=== PATIENT | female | born 1985 | race Caucasian/White ===

== ENCOUNTER 2023-01-07 00:21 | Emergency (ER) | payer BC, SELFPAY ==
[2023-01-07 00:26] VITALS: BP 138/101; PULSE 97; RESP 22; TEMP 36.8; O2SAT 99; BMI 28.3
[2023-01-07 00:32] VITALS: PULSE 97
--- NOTE | 2023-01-07 00:33 | ECG_ITS ---
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
--- NOTE | 2023-01-07 00:35 | ED.CHESTPAI1 ---
HPI - Chest Pain General Chief Complaint: Chest Pain Stated Complaint: CHEST PAIN Time Seen by Provider: 01/07/23 00:22 Source: patient Mode of arrival: walk-in Limitations: no limitations History of Present Illness HPI narrative: developed chest pain this morning - just left of center - and has been intermittent since it began. No recent injury or activity to account for the pain. The pain radiates into the left shoulder and left upper back. Associated with shortness of breath. Pain worsens when she takes a deep breath. She took nothing for the pain. PMHx includes recent diagnosis of cervical cancer for which she had a LEEP and is scheduled to see a specialist regarding any additional treatment. She just found out that she has high cholesterol and that her thyroid function is also being monitored . She does not have a local PCP - she was referred to a provider in [place] for her cervical cancer treatment. Related Data Home Medications Medication Instructions Recorded Confirmed bupropion HCl 150 mg tablet,12 hr mg PO 01/07/23 sustained-release Allergies Allergy/AdvReac Type Severity Reaction Status Date / Time No Known Drug Allergies Allergy Verified 01/07/23 00:35 Exam Narrative Exam Narrative: Nurses notes and vital signs reviewed and patient is not hypoxic. afebrile General: anxious and hyperventilating Skin: Warm, dry, no pallor noted. No rash. Head: Normocephalic, atraumatic. Neck: Supple, non-tender. Eye: Pupils are equal, round and EOMI. No scleral icterus. Ears, Nose, Mouth, and Throat: Oral mucosa is moist Cardiovascular: borderline tachycardia. Respiratory: No accessory muscle use or respiratory distress. Lungs are clear to auscultation, no wheezing, rales or rhonchi Chest Wall: no tenderness, crepitus or subcutaneous emphysema Back: No midline thoracic or lumbar vertebral tenderness. No CVA tenderness Musculoskeletal: normal ROM, no calf or popliteal tenderness, no lower extremity edema/swelling GI: Abdomen is soft, non-distended. Normal bowel sounds. No tenderness to palpation. No rebound, guarding, or rigidity noted. Neurological: A&O x4. No cranial nerve dysfunction observed. No truncal ataxia. Moves all extremities. Sensation intact. Psychiatric: Cooperative and interactive. Normal mood and affect. Constitutional Vital Signs - 24 hr 01/07/23 00:26 01/07/23 01:27 Temperature 98.3 F Pulse Rate [Monitor] 97 H 105 H Respiratory Rate 22 20 Blood Pressure [Left Arm] 138/101 H 133/84 H Pulse Oximetry 99 97 Oxygen Delivery Method Room Air Room Air Course Vital Signs Vital signs: Vital Signs Temperature 98.3 F 01/07/23 00:26 Pulse Rate 97 H 01/07/23 00:26 Respiratory Rate 22 01/07/23 00:26 Blood Pressure 138/101 H 01/07/23 00:26 Pulse Oximetry 99 01/07/23 00:26 Oxygen Delivery Method Room Air 01/07/23 00:26 Temperature 98.3 F 01/07/23 00:26 Pulse Rate 105 H 01/07/23 01:27 Respiratory Rate 20 01/07/23 01:27 Blood Pressure 133/84 H 01/07/23 01:27 Pulse Oximetry 97 01/07/23 01:27 Oxygen Delivery Method Room Air 01/07/23 01:27 MDM - Chest Pain MDM Narrative Medical decision making narrative: Patient was placed on environmental monitoring specialist and EKG obtained. Blood drawn and sent for evaluation. she was given IV Toradol for her pain and IV Ativan for her anxiety. chest CTA obtained. Lab Data Attestation: I reviewed the patient's lab results. Labs: Lab Results 01/07/23 Range/Units 00:40 WBC 10.3 (4.0-11.0) 10^3/uL RBC 4.69 (4.20-5.40) 10^6/uL Hgb 14.2 (12.0-16.0) g/dL Hct 44.0 (36.0-48.0) % MCV 93.8 (81.0-99.0) fL MCH 30.3 (26.7-34.0) pg MCHC 32.3 (29.9-35.2) g/dL RDW 13.7 (11.0-15.0) % Plt Count 251 (150-450) 10^3/uL MPV 9.6 (9.5-13.5) fL Neut % (Auto) 64.6 (43.0-75.0) % Lymph % (Auto) 21.1 (20.5-60.0) % Saline % (Auto) 11.2 (1.7-12.0) % Eos % (Auto) 2.4 (0.9-7.0) % Baso % (Auto) 0.4 (0.2-2.0) % Neut # (Auto) 6.6 H (1.4-6.5) 10^3/uL Lymph # (Auto) 2.2 (1.2-3.8) 10^3/uL Saline # (Auto) 1.2 H (0.3-0.8) 10^3/uL Eos # (Auto) 0.3 (0.0-0.7) 10^3/uL Baso # (Auto) 0.0 (0.0-0.1) 10^3/uL Abs Immat Gran (auto) 0.03 (0.00-0.03) 10^3/uL Imm/Tot Granulo (auto) 0.3 (0.0-0.5) % Sodium 137 (136-145) mmol/L Potassium 3.4 L (3.5-5.1) mmol/L Chloride 104 (98-107) mmol/L Carbon Dioxide 27.3 (21.0-32.0) mmol/L Anion Gap 9.1 BUN 15.0 (7.0-18.0) mg/dL Creatinine 1.04 H (0.55-1.02) mg/dL Est GFR ( Amer) >60 (>=60) Est GFR (Non-Af Amer) 59 L (>=60) BUN/Creatinine Ratio 14.4 Glucose 120 H (74-106) mg/dL Calcium 8.7 (8.5-10.1) mg/dL Troponin I High Sens 8.1 (4.0-51.3) pg/mL Free T4 0.74 L (0.76-1.46) ng/dL Free T3 2.83 (2.18-3.98) pg/mL Imaging Data CT scan - chest: Radiologist's impression: Patient Name: DEANDRA COHEN MRN: [id number] date: 1985 Sex: F Assigned Patient Location: ER Current Patient Location: ER Accession/Order Number: [id number] Exam Date: 01/07/2023 01:30 Report Date: 01/07/2023 01:32 At the request of: HO BERNARDO Procedure: CT angio chest EXAMINATION: CT angio chest HISTORY: chest pain, shortness of breath , left arm pain, back pain COMPARISON: No relevant comparison available. TECHNIQUE: Multi-planar CT images were created with IV contrast. Axial, Coronal, and Sagittal images. Dose reduction techniques were achieved by using automated exposure control and/or adjustment of mA and/or kV according to patient size and/or use of iterative reconstruction technique. 3-D reconstruction was performed on a separate workstation. FINDINGS: VASCULATURE: No pulmonary embolism or abnormal opacity. LUNGS: No visible pulmonary disease. PLEURA: No mass, effusion, or pneumothorax. MOHSEN: No mass or adenopathy. MEDIASTINUM: No mass or adenopathy. CARDIAC: No enlargement, pericardial effusion, or pericardial thickening. AORTA: No aneurysm or dissection. CHEST WALL: No mass or axillary adenopathy. BONES: No bone lesion or fracture. LIMITED ABDOMEN: No suspicious findings. Limited images of the upper abdomen. OTHER: Negative. IMPRESSION: 1. No pulmonary embolism. 2. No pulmonary infiltrates, pneumothorax, pleural effusion, or suspicious findings to account for patient's symptoms. Electronically authenticated by: KANU GANDHI Date: 01/07/2023 01:32 ECG Data Attestation: ?I have reviewed the pertinent ECG results. Interpretation: EKG interpretation: Emergency Department physician interpretation. Normal sinus rhythm at 97bpm. Normal axis, normal intervals and no ST segment elevation or depression. Normal ekg. Heart Score History: Moderatly Suspicious ECG: Normal Age: <45 years Risk Factors: 1 or 2 Risk Factors Troponin: <Normal Limit Total Heart Score Recommendations & Risks:: 2 Discharge Plan Discharge Chief Complaint: Chest Pain Clinical Impression: Chest pain Patient Disposition: Home, Self-Care Time of Disposition Decision: 01:36 Prescriptions / Home Meds: No Action bupropion HCl 150 mg tablet sustained-release 12 hr PO Instructions: Chest Pain (ED) Stand Alone Forms: Portal Instructions Referrals: Physician,Non-Staff, MD [Primary Care Provider] - 1 week
[2023-01-07] MEDS: KETOROLAC TROMETHAMINE 30 MG/ML VIAL IVP (00:50)
[2023-01-07] MEDS: LORAZEPAM 2 MG/ML 1 ML VIAL 1 MG IV (00:50)
[2023-01-07 01:02] LABS: Basophils Percent Auto 0.4 % (0.2-2.0); Eosinophils Absolute Auto 0.3 10^3/uL (0.0-0.7); Eosinophils Percent Auto 2.4 % (0.9-7.0); Hemoglobin 14.2 g/dL (12.0-16.0); Immature Granulocytes Abs Auto 0.03 10^3/uL (0.00-0.03); Immature Granulocytes Pct Auto 0.3 % (0.0-0.5); Lymphocytes Absolute Auto 2.2 10^3/uL (1.2-3.8); Lymphocytes Percent Auto 21.1 % (20.5-60.0); Mean Corpuscular HGB Conc 32.3 g/dL (29.9-35.2); Mean Corpuscular Hemoglobin 30.3 pg (26.7-34.0); Mean Corpuscular Volume 93.8 fL (81.0-99.0); Mean Platelet Volume 9.6 fL (9.5-13.5); Monocytes Absolute Auto 1.2 10^3/uL (0.3-0.8); Monocytes Percent Auto 11.2 % (1.7-12.0); Neutrophils Absolute Auto 6.6 10^3/uL (1.4-6.5); Neutrophils Percent Auto 64.6 % (43.0-75.0); Platelet Count 251 10^3/uL (150-450); Red Blood Count 4.69 10^6/uL (4.20-5.40); Red Cell Distribution Width 13.7 % (11.0-15.0); White Blood Count 10.3 10^3/uL (4.0-11.0)
[2023-01-07 01:22] LABS: Anion Gap 9.1; BUN Creatinine Ratio 14.4; Calcium 8.7 mg/dL (8.5-10.1); Carbon Dioxide 27.3 mmol/L (21.0-32.0); Chloride 104 mmol/L (98-107); Estimated GFR (African America >60 (>=60); Estimated GFR (Non-African Ame 59 (>=60); Glucose 120 mg/dL (74-106); Potassium 3.4 mmol/L (3.5-5.1); Sodium 137 mmol/L (136-145); Troponin I High Sensitivity 8.1 pg/mL (4.0-51.3)
[2023-01-07 01:23] LABS: Free T4 0.74 ng/dL (0.76-1.46)
[2023-01-07 01:27] VITALS: BP 133/84; PULSE 105; RESP 20; O2SAT 97
--- NOTE | 2023-01-07 01:28 | PC.NURSE ---
States feeling better, able to sleep.
[2023-01-07 01:33] LABS: Free T3 2.83 pg/mL (2.18-3.98)
== END 2023-01-07 01:55 | disposition home or self-care (01) ==
PROVIDERS: Emergency Provider Emergency Medicine
DX: R07.9 Chest pain, unspecified (principal); Z85.41 Personal history of malignant neoplasm of cervix uteri; E78.00 Pure hypercholesterolemia, unspecified; Z79.899 Other long term (current) drug therapy
CPT/HCPCS: 36415; 71275; 80048; 84439; 84481; 84484; 85025; 93005; 96374; 96375; 99285; Q9967